=== PATIENT | male | born 1960 | race Caucasian/White ===

== ENCOUNTER 2016-11-15 06:29 | Day surgery (SDC) | payer BC ==
[2016-11-12 10:24] VITALS: BMI 32.3
[2016-11-15] MEDS ORDERED: MIDAZOLAM 2 MG/2 ML VIAL IV ONE (07:04)
[2016-11-15] MEDS ORDERED: MIDAZOLAM 2 MG/2 ML VIAL IVP ONE (07:20)
[2016-11-15] MEDS: SODIUM CHLORIDE 0.9% 1,000 ML IV SCH (07:27)
[2016-11-15 07:35] LABS: Prothrombin Time 19.2 sec (9.0-12.0)
[2016-11-15] MEDS ORDERED: FUROSEMIDE 10 MG/ML 2 ML VIAL ONE (07:54)
[2016-11-15] MEDS ORDERED: NEOSTIGMINE 1 MG/ML 10 ML VIAL ONE (07:54)
[2016-11-15] MEDS ORDERED: MIDAZOLAM 2 MG/2 ML VIAL ONE (07:54)
[2016-11-15] MEDS ORDERED: PROTAMINE SULFATE 10 MG/ML 5 ML VIAL IV ONE (07:54)
[2016-11-15] MEDS ORDERED: ceFAZolin 1,000 MG VIAL ONE (07:54)
[2016-11-15] MEDS ORDERED: LIDOCAINE 4% (PF) 5 ML AMP ONE (07:54)
[2016-11-15] MEDS ORDERED: fentaNYL (PF) 50 MCG/ML 2 ML AMP ONE (07:54)
[2016-11-15] MEDS ORDERED: VECURONIUM 10 MG VIAL IV ONE (07:54)
[2016-11-15] MEDS ORDERED: GLYCOPYRROLATE 0.2 MG/ML 2 ML VIAL ONE (07:54)
[2016-11-15] MEDS ORDERED: HEPARIN SODIUM 1,000 UNIT/ML VIAL ONE (07:54)
[2016-11-15] MEDS ORDERED: HEPARIN SODIUM,PORCINE 5,000 UNIT/ML 1 ML VIAL ONE (07:54)
[2016-11-15] MEDS ORDERED: PROPOFOL 10 MG/ML 20 ML VIAL IV ONE (07:54)
[2016-11-15] MEDS ORDERED: ceFAZolin 1,000 MG/50 ML BAG (PMX) IVPB ONE (08:38)
[2016-11-15] MEDS ORDERED: HEPARIN SODIUM,PORCINE/D5W PMX 25,000 UNIT in DEXTROSE/WATER 1 500ML.BAG IV ONE (09:23)
[2016-11-15] MEDS ORDERED: HEPARIN SODIUM 1,000 UNIT/ML VIAL IV ONE (09:46)
[2016-11-15] MEDS ORDERED: HEPARIN SODIUM (1,000 UNIT/ML) 1,000 UNIT in SODIUM CHLORIDE 0.9% 1,000 ML IRRIGATION ONE ×2 (09:50→12:35)
[2016-11-15] MEDS ORDERED: LACTATED RINGERS 1,000 ML IV ONE (13:40)
[2016-11-15] MEDS ORDERED: FUROSEMIDE 10 MG/ML 4 ML VIAL ONE (14:36)
[2016-11-15] MEDS ORDERED: HYDROcodone/APAP 5-325MG 1 EACH TAB PO PRN (15:31)
[2016-11-15] MEDS ORDERED: ACETAMINOPHEN TAB 325 MG TAB PO PRN (15:31)
[2016-11-15] MEDS ORDERED: ACETAMINOPHEN IV (For NPO) 1,000 MG in EMPTY BAG 1 BAG IVPB ONE (16:00)
--- NOTE | 2016-11-15 16:16 | CE ---
DATE OF SERVICE: History of sick sinus syndrome status post permanent pacemaker implantation, history of cardiomyopathy, history of persistent symptomatic atrial fibrillation and had atrial fibrillation, now drug refractory and he required electrical cardioversion on flecainide. He is brought in for an EP study and ablation for atrial fibrillation. Patient was brought to the EP lab in a fasting state. Written informed consent was obtained prior to the procedure. IV antibiotics were administered preoperatively. His dual-chamber pacemaker was interrogation and then reprogrammed to DDD mode at 40 beats a minute. At the end of the procedure the dual-chamber pacemaker was interrogated and then reprogrammed to DDR 60 to 140 bpm. The right and left groins were prepped and draped as per protocol and the following sheaths were placed. A 5 Scottish sheath was placed in the right femoral artery, two 8 Scottish sheaths in the right femoral vein and one 10-Scottish sheath in the left femoral vein. Later one of the 8 Scottish sheaths was exchanged for a long sheath for left atrial mapping. Intracardiac echo catheter was placed and coronary sinus catheter was placed. A diagnostic EP study was performed. Sinus cycle length was 679 ms, DC interval was 223 ms, QRS 404 ms, QT 384 ms. AH interval was normal limits. Intracardiac echocardiography did not reveal any intracardiac mass or thrombus. 3-D anatomic mapping was performed of the left atrium and the right atrial isthmus. Left and right transseptal catheterization was performed. RA pressure 33 x 26 x 28 mmHg and LA pressures 16 x 5 x 11 mmHg. Under intracardiac echo guidance transeptal access was obtained of the left atrium. A long sheath was placed here and a mapping ablation catheter was placed and 3-D mapping was performed of the pulmonary veins and the left atrium. Antral isolation of the right-sided veins was performed and at the end of the procedure complete isolation was noted. There was recovery of conduction at the end anteriorly along the lucinao and this was re-ablated and complete isolation was obtained at the end. The esophagus was left-sided and therefore had to be deflected away from the left side allowing for complete isolation of the pulmonary veins at an antral level. The left-sided veins appeared to be a common left-sided vein and complete antral isolation was performed and entrance block was proven. There was no recovery of conduction at the end of the procedure. During the procedure, during mapping the patient went into tachycardia and he remained in tachycardia all through. This tachycardia was consistent with atrial flutter. Once pulmonary vein isolation was completed, the sheath and the mapping ablation catheter were pulled back into the right atrium. Entrainment was performed from the right atrial isthmus. The postpacing interval was a complete match as well as the activation pattern was consistent with typical atrial flutter. 3-D mapping of the right atrial isthmus was performed and successful ablation for atrial flutter was performed with termination of atrial flutter. Thereafter, complete integrity of the line was complete. Anatomic integrity of the line was confirmed and pacing maneuvers with differential pacing proved bidirectional block. Heparin was maintained about 300 and this is reversed at the end of the procedure prior removing the sheath. At the end of the procedure, radiographic evaluation of the esophagus was performed. There was no evidence for any esophageal perforation, tear or esophageal ulceration. Patient tolerated the procedure well without any acute complications. There was no evidence of pericardial effusion by intracardiac echo at the end of the procedure.
[2016-11-15] MEDS: WARFARIN 5 MG TAB PO SCH (17:29)
[2016-11-15] MEDS: LOSARTAN 50 MG TAB PO SCH (20:41)
[2016-11-15] MEDS: FLECAINIDE 50 MG TAB PO SCH (20:41)
[2016-11-16] MEDS: SODIUM CHLORIDE 0.9% 1,000 ML IV SCH (06:39)
[2016-11-16] MEDS: CARVEDILOL 6.25 MG TAB PO SCH (07:12)
--- NOTE | 2016-11-16 08:14 | PN ---
Mr. Peralta underwent an ablation for atrial fibrillation yesterday as well as ablation for atrial flutter. He is doing well this morning. He is lying comfortably in bed. He did get up this morning. His groins have healed well. Bladder catheter is out. He looks comfortable. He has no respiratory distress. He has a mild sore throat and a vague discomfort in the chest only when he takes a deep breath, but he does not appear to be in any pain when he takes a deep breath. His lungs are clear. He denies any cough, phlegm, or any shortness of breath. He denied any dizziness when he got up in the morning. He has had no swallowing problems, other than in his throat. On examination, the blood pressure is 151/68 mmHg, pulse rate in the 50s. Temperature is 96.9 degrees Fahrenheit. Head and neck examination is normal. Heart sounds S1, S2 normal. No rub, no gallop. Breath sounds are normal. No rhonchi. No crackles. Abdomen was soft, nontender. Extremities are warm. No edema. IMPRESSION: 1. Sick sinus syndrome, status post pacemaker implantation. 2. Atrial fibrillation, status post atrial fibrillation. 3. Atrial flutter, status post atrial flutter ablation. 4. Hypertension. SUGGEST: Continue anticoagulation. Continue cardiac medications and watch blood pressure and if the blood pressure is elevated, we will increase his antihypertensive therapy. His pacemaker will be interrogated today. I spoke to the nurse. She contacted [employer] for interrogation. I spoke to Dr. Acuna. He will see the patient on my behalf tomorrow and will discharge him tomorrow. Patient will be monitored for the next 24 hours since he had a long procedure under general anesthesia. He has had no acute complications so far and seems to be doing well.
[2016-11-16 08:29] LABS: INR 2.3 (<1.1); Prothrombin Time 21.9 sec (9.0-12.0)
[2016-11-16 08:36] LABS: Anion Gap 9 mmol/L; Blood Urea Nitrogen 15 mg/dL (9-20); Calcium 8.5 mg/dL (8.4-10.2); Carbon Dioxide 25 mmol/L (22-30); Chloride 101 mmol/L (98-107); Glucose 129 mg/dL (74-99); Non-African American GFR(MDRD) >60 (>60 ml/min/1.73 sqM); Sodium 135 mmol/L (137-145)
[2016-11-16] MEDS: MAGNESIUM OXIDE 400 MG TAB PO SCH (08:52)
[2016-11-16] MEDS: FLECAINIDE 50 MG TAB PO SCH ×2 (08:52→20:00)
[2016-11-16] MEDS: PANTOPRAZOLE 40 MG TABLET PO SCH (08:52)
[2016-11-16] MEDS: SPIRONOLACTONE 25 MG TAB PO SCH (08:53)
[2016-11-16] MEDS ORDERED: WARFARIN 5 MG TAB PO ONE ×2 (09:00→18:00)
[2016-11-16] MEDS: WARFARIN 5 MG TAB PO SCH (17:09)
[2016-11-16] MEDS: LOSARTAN 50 MG TAB PO SCH (20:00)
[2016-11-17] MEDS: CARVEDILOL 6.25 MG TAB PO SCH (07:04)
[2016-11-17] MEDS: SODIUM CHLORIDE 0.9% 1,000 ML IV SCH (07:05)
[2016-11-17] MEDS: FLECAINIDE 50 MG TAB PO SCH (08:27)
[2016-11-17] MEDS: SPIRONOLACTONE 25 MG TAB PO SCH (08:28)
[2016-11-17] MEDS: MAGNESIUM OXIDE 400 MG TAB PO SCH (08:28)
[2016-11-17] MEDS: PANTOPRAZOLE 40 MG TABLET PO SCH (08:28)
[2016-11-17 08:35] VITALS: TEMP 97.1
--- NOTE | 2016-11-17 14:18 | P.DS ---
Providers Attending physician: Harvey Brown Primary care physician: Marshall Junior - Discharge Diagnosis(es) (1) Sick sinus syndrome Current Visit: Yes Status: Chronic (2) Atrial fibrillation and flutter Current Visit: Yes Status: Acute (3) Status post radiofrequency ablation for arrhythmia Current Visit: Yes Status: Acute (4) Pacemaker Current Visit: Yes Status: Acute (5) Hypertension Current Visit: Yes Status: Chronic Hospital Course: This is a pleasant 56-year-old gentleman who underwent ablation for atrial fibrillation and atrial flutter on November 15. He has done well and remains in sinus rhythm. His been up walking without difficulties. Denies complaints of shortness of breath, chest discomfort, palpitations, dizziness or lightheadedness. He denies further complaints of discomfort in the chest when taking a deep breath. Continues to complain of mild sore throat with no difficulty swallowing. He's had no cough or nausea and vomiting. Physical examination reveals clear lung sounds. Heart sounds are regular S1 and S2 are normal with no rub, gallop or murmurs. Abdomen soft and nontender. Peripheral pulses palpable. Bilateral groin puncture sites soft with ecchymosis, no hematoma. He will be discharged this afternoon and follow-up with Dr. Qiu in the office in one week. Plan - Discharge Summary Discharge Medication List Carvedilol [Coreg] 6.25 mg PO QAM 05/18/14 [History] Losartan [Cozaar] 50 mg PO HS 05/18/14 [History] Magnesium Chloride [Slow-Mag] 64 mg PO DAILY 05/18/14 [History] Omeprazole [PriLOSEC] 20 mg PO QAM 05/18/14 [History] Spironolactone 50 mg PO QAM 05/18/14 [History] Warfarin [Coumadin] 5 mg PO DAILY 05/18/14 [History] Ezetimibe/Simvastatin [Vytorin 10-20 mg Tablet] 0.5 tab PO HS 06/14/14 [History] Flecainide [Tambocor] 100 mg PO Q12HR 08/21/16 [History] Follow up Appointment(s)/Referral(s): Harvey Brown MD [STAFF PHYSICIAN] - 1 Week
[2016-11-17 14:22] VITALS: BP 125/72; PULSE 70; RESP 18
== END 2016-11-17 15:00 | disposition home or self-care (01) ==
LOC: CATHEP 06:29 → 6SEL 14:49 → CATHEP 11-17 15:00
PROVIDERS: ATTEND Internal Medicine Clinical Cardiac Electrophysiology
DX: I48.1 Persistent atrial fibrillation (principal); I48.92 Unspecified atrial flutter; I49.5 Sick sinus syndrome; I10 Essential (primary) hypertension; Z95.0 Presence of cardiac pacemaker; G47.33 Obstructive sleep apnea (adult) (pediatric); I42.9 Cardiomyopathy, unspecified; E78.5 Hyperlipidemia, unspecified; I73.9 Peripheral vascular disease, unspecified; K21.9 Gastro-esophageal reflux disease without esophagitis; Z79.01 Long term (current) use of anticoagulants; Z79.899 Other long term (current) drug therapy
CPT/HCPCS: 85347; 93662; 93613; 93656; 83880; 80048; 83735; 85610 ×2; C1769 ×3; C1894 ×3; C1730; C1893; C1759; C1732; J2001; J2250; J2720; J1644 ×3; J1940; J2710; J0690 ×2; J3010; J0131; J2704

== ENCOUNTER → 2017-01-15 | Outpatient (CLI) | payer BC ==
--- NOTE | 2017-01-16 09:10 | PN ---
A 50-year-old male patient coming in today for a followup regarding his obstructive sleep apnea. His last evaluation was in June 2013. Back then the patient was diagnosed having KENZIE with an AHI of 32.8 and he remains on a BiPAP at a pressure of 11/7 cm of water. He is doing well. He has no specific complaints. He has history of paroxysmal atrial fibrillation along with history of DVT and he has a pacemaker in place. Other comorbid conditions include hyperlipidemia and GERD. I checked his CPAP machine. The patient is using his CPAP every night without any interruption. His CPAP use for more than 4 hours is 26 out of 30 and his average CPAP use is 6 hours per night. His AHI is down to 0.3. No hypersomnia or sleepiness during the day. No recent weight gain or weight loss. He is still benefiting from CPAP therapy and he is waking up refreshed and alert during the day. No other complaints otherwise for now. BP is 123/86, pulse 64, respirations 16, temperature 98.0, saturation 99% on room air. Weight is 263. Height is 73 inches. BMI is 34.6. GENERAL APPEARANCE: Calm, comfortable. HEENT: Negative for JVD. There is no goiter or neck masses. LUNGS: Clear to auscultation. HEART: Sounds are regular rate and rhythm. Normal S1 and S2. No S3, no S4. No murmurs. ABDOMEN: Soft, nontender. No organomegaly. EXTREMITIES: No edema. No cyanosis or clubbing. IMPRESSION: 1. Severe obstructive sleep apnea with an apnea-hypopnea index of 32.8, currently on a BiPAP with a pressure of 11/7 cm of water. Treatment remains successful. The patient continues to see adequate benefit and he remains compliant based on the compliance data that was checked today from his BiPAP machine. 2. Chronic atrial fibrillation. 3. Hypertension. 4. Right ventricular enlargement based on previous echocardiograms. 5. History of deep venous thrombosis back in 2006. 6. History of pacemaker insertion. 7. Hyperlipidemia. 8. Acid reflux. 9. History of retinal detachment in 2002 and 2010. 10. Obesity. 11. Degenerative arthritis. PLAN: 1. Encourage using the BiPAP at the same level of pressure. 2. Renew his mask, tubing and supplies. 3. No need for any studies at this point as the patient's treatment is successful and the patient has been compliant. 4. Implement good sleep hygiene measures. 5. Weight loss. 6. Follow up with Dr. Brown. 7. See me back in followup in a year's time if needed.
== END | disposition home or self-care (01) ==
LOC: SLEEP 13:11
PROVIDERS: ATTEND Internal Medicine Critical Care Medicine
DX: G47.33 Obstructive sleep apnea (adult) (pediatric) (principal)

== ENCOUNTER → 2018-11-25 | Outpatient (CLI) | payer BC ==
--- NOTE | 2018-11-25 15:38 | PN ---
PROGRESS NOTE A 58-year-old male patient coming in for a followup regarding obstructive sleep apnea. The last evaluation was approximately 2 years ago. The patient has severe KENZIE with an AHI of 34 and currently is on a BiPAP pressure of 11/7 cm of water. He is using a [employer] BiPAP unit. Doing extremely well. Very compliant with his treatments. His weight is up by around 15 pounds over the past 2 years. He is averaging about 7 hours of BiPAP use per night. His AHI is down to 0.3. BiPAP use for more than 4 hours is 100%. No complaints, alert and awake during the day. No cardiac complications. He underwent a cardiac ablation for atrial fibrillation and he remains in normal sinus rhythm. The procedure itself was very successful. REVIEW OF SYSTEMS: A 12-point review of system was done and positive findings are mentioned above in history of present illness. PHYSICAL EXAMINATION: BP is 134/82, pulse 80, respirations 16, temperature 98.4, saturation 99% on room air. BMI 33.9, weight is 268. Height is 6,2. Encinal score is down to 0. GENERAL APPEARANCE: Calm, comfortable. Head is atraumatic, normocephalic. Neck is supple. Mallampati class IV, no goiter or neck mass. LUNGS: Clear to auscultation. HEART: Sounds regular rate and rhythm. Normal S1, S2. No murmurs. ABDOMEN: Soft, nontender. No organomegaly. EXTREMITIES: No edema. No cyanosis or clubbing. NEUROLOGIC: Alert and oriented x3. There is no focal neurological deficits. IMPRESSION: 1. Symptomatic obstructive sleep apnea, severe apnea-hypopnea index of 34, while treated with a BiPAP pressure of 11/7. 2. Hypersomnia, recovered. 3. Atrial fibrillation, post ablation, currently in normal sinus rhythm. PLAN: 1. Encourage losing weight. The patient is noted to have gained around 15 pounds and he was encouraged to maintain or lose weight over the next few years. 2. Continue BiPAP at the same level of pressure. 3. Offered an Air Fit N10 nose mask as an alternative mask. His current mask is a Mitchell FX debo. Refills on the mask was given. 4. He has an older generation BiPAP unit which is functional. Will continue using the same machine. He will contact me back if he should have any problems in the future. Otherwise, will see him back in few years' time. MMODL / IJN: [id number] /
== END ==
LOC: SLEEP 14:33
PROVIDERS: ATTEND Internal Medicine Critical Care Medicine
DX: G47.33 Obstructive sleep apnea (adult) (pediatric) (principal); I48.91 Unspecified atrial fibrillation; Z98.890 Other specified postprocedural states; Z99.89 Dependence on other enabling machines and devices

== ENCOUNTER 2021-12-11 05:59 | Day surgery (SDC) | payer BC ==
[2021-12-06 16:26] VITALS: BMI 32.5
[2021-12-11] MEDS ORDERED: SODIUM CHLORIDE 0.9% 1,000 ML IV SCH (06:00)
[2021-12-11 06:24] VITALS: RESP 16; TEMP 98.8
[2021-12-11 06:32] LABS: Basophils % (A) 0 %; Eosinophils # (A) 0.1 k/uL (0-0.7); Eosinophils % (A) 2 %; HCT 45.3 % (39.0-53.0); HGB 14.9 gm/dL (13.0-17.5); Lymphocytes # (A) 1.3 k/uL (1.0-4.8); Lymphocytes % (A) 22 %; MCH 32.3 pg (25.0-35.0); MCV 97.8 fL (80.0-100.0); Mean Platelet Volume 7.6; Monocytes # (A) 0.4 k/uL (0-1.0); Monocytes % (A) 8 %; Neutrophils # (A) 3.7 k/uL (1.3-7.7); Neutrophils % (A) 66 %; Platelet Count 143 k/uL (150-450); RBC 4.63 m/uL (4.30-5.90); RDW 12.2 % (11.5-15.5); WBC 5.6 k/uL (3.8-10.6)
[2021-12-11 06:52] LABS: African American GFR (CKD) >90 (>60 ml/min/1.73 sqM); Anion Gap 5 mmol/L; Blood Urea Nitrogen 17 mg/dL (9-20); Carbon Dioxide 26 mmol/L (22-30); Chloride 107 mmol/L (98-107); Glucose 99 mg/dL (74-99); Non-African American GFR(CKD) 80 (>60 ml/min/1.73 sqM); Sodium 138 mmol/L (137-145)
[2021-12-11 06:59] LABS: Potassium 4.1 mmol/L (3.5-5.1)
[2021-12-11] MEDS ORDERED: ceFAZolin 1 GM in SODIUM CHLORIDE 0.9% IRRIG BTL 250 ML IRRIGATION PRN (07:00)
[2021-12-11] MEDS ORDERED: diphenhydrAMINE 50 MG/ML 1 ML VIAL ONE (07:21)
[2021-12-11] MEDS ORDERED: MIDAZOLAM 2 MG/2 ML VIAL ONE (07:21)
[2021-12-11] MEDS ORDERED: fentaNYL (PF) 50 MCG/ML 2 ML AMP ONE (07:21)
[2021-12-11] MEDS ORDERED: ONDANSETRON 4 MG/2 ML VIAL ONE (07:21)
[2021-12-11] MEDS ORDERED: LIDOCAINE 1% INJ 10MG/ML (20 ML MDV) ONE (07:35)
[2021-12-11] MEDS ORDERED: LIDOCAINE 1% INJ 10MG/ML (20 ML MDV) SQ ONE ×3 (07:47→08:20)
[2021-12-11] MEDS ORDERED: ACETAMINOPHEN TAB 325 MG TAB PO PRN (08:30)
--- NOTE | 2021-12-11 08:35 | P.PN ---
Progress Note - Text Successful dual-chamber pacemaker implantation for sick sinus syndrome with approximately 30% atrial pacing Minimal RV pacing Preserved LV systolic function History of persistent atrial fibrillation Successful dual-chamber pacemaker generator change Both atrial and ventricular leads appear normal on fluoroscopy Both leads of functioning normally with stable impedances and excellent thresholds and sensing function Medtronic dual-chamber pacemaker implanted, AAIR-DDDR 50 to 140
[2021-12-11] MEDS ORDERED: NON FORMULARY DRUG (Spironolactone [Spironolactone] 50 MG Tablet) PO SCH (09:00)
[2021-12-11] MEDS ORDERED: FLECAINIDE 50 MG TAB PO SCH (09:00)
[2021-12-11] MEDS ORDERED: ACETAMINOPHEN IV (For NPO) 1,000 MG in EMPTY BAG 1 BAG IVPB ONE (09:30)
--- NOTE | 2021-12-11 14:28 | P.EPPROC ---
- EP Procedure Note Electrophysiology Procedure Note: Indication Dual-chamber pacemaker generator change for normal battery depletion Procedure Cinefluoroscopy of the leads was performed line atrial lead in the right atrial appendage and RV lead in the RV apex chronically placed No fractures or breaks noted Left pectoral area was prepped and draped as a protocol. IV antibiotic Cipro administered Incision was made over the keloid The keloid was excised The generator was explanted We have interrogated Partial capsulectomy performed New generator implanted Leads interrogated and functioning normally A Medtronic dual-chamber pacemaker implanted and programmed to AAI-DDDR 50-140 bpm Normally functioning RV and atrial leads Patient tolerated the procedure well without any acute complications
[2021-12-11] MEDS ORDERED: carvediloL 6.25 MG TAB PO SCH (17:30)
[2021-12-11 20:00] VITALS: BP 116/65; PULSE 58
[2021-12-11] MEDS ORDERED: LOSARTAN 50 MG TAB PO SCH (21:00)
[2021-12-11] MEDS ORDERED: NON FORMULARY DRUG (Simvastatin 10 MG Tab) PO SCH (21:00)
[2021-12-11] MEDS ORDERED: RIVAROXABAN 20 MG TAB PO SCH (21:00)
[2021-12-11] MEDS ORDERED: NON FORMULARY DRUG (Magnesium Chloride 64 MG Tablet.Er) PO SCH (21:00)
[2021-12-11] MEDS ORDERED: EZETIMIBE 10 MG TAB PO SCH (21:00)
[2021-12-12] MEDS ORDERED: PANTOPRAZOLE 40 MG TABLET PO SCH (07:30)
== END 2021-12-11 17:18 | disposition home or self-care (01) ==
LOC: CATHEP 05:59
PROVIDERS: ATTEND Internal Medicine Clinical Cardiac Electrophysiology
DX: I49.5 Sick sinus syndrome (principal); I48.19 Other persistent atrial fibrillation; Z20.822 Contact with and (suspected) exposure to COVID-19
CPT/HCPCS: 33228; 80048; 85025; 87635; C1785; J2250; J1200; J0690; J2405; J2001; J3010; J0131

== ENCOUNTER 2023-09-30 10:33 | Day surgery (SDC) | payer BC ==
[~2023-09-30 10:33] MED LIST: ALPRAZolam 0.25 MG TAB PO PRN; ALPRAZolam 0.5 MG TAB PO PRN; ASPIRIN 325 MG TAB PO STA; ATORVASTATIN 80 MG TAB PO STA; HEPARIN SODIUM,PORCINE (1 ML) 2,500 UNIT in SODIUM CHLORIDE 0.9% 250 ML IRRIGATION PRN; HEPARIN SODIUM,PORCINE 10,000 UNIT in SODIUM CHLORIDE 0.9% 1,000 ML IRRIGATION PRN; NITROGLYCERIN SL TABS 0.4 MG TAB SUBLINGUAL PRN; SODIUM CHLORIDE 0.9% 1,000 ML in EMPTY BAG 1 BAG IV SCH
[2023-09-30] MEDS ORDERED: SODIUM CHLORIDE 0.9% 1,000 ML IV ONE (10:37)
[2023-09-30 11:08] VITALS: RESP 16; TEMP 97.8
[2023-09-30 11:57] LABS: African American GFR (CKD) >90 (>60 ml/min/1.73 sqM); Anion Gap 12 mmol/L; Blood Urea Nitrogen 17 mg/dL (9-20); Calcium 9.4 mg/dL (8.4-10.2); Carbon Dioxide 25 mmol/L (22-30); Chloride 103 mmol/L (98-107); Glucose 103 mg/dL (74-99); Non-African American GFR(CKD) 83 (>60 ml/min/1.73 sqM); Potassium 4.5 mmol/L (3.5-5.1); Sodium 140 mmol/L (137-145)
[2023-09-30] MEDS ORDERED: LIDOCAINE 1% INJ 10MG/ML (30 ML VIAL-PF) SQ ONE (12:50)
[2023-09-30] MEDS ORDERED: MIDAZOLAM 2 MG/2 ML VIAL IVP ONE ×2 (12:50)
[2023-09-30] MEDS ORDERED: fentaNYL (PF) 50 MCG/1 ML VIAL IVP ONE ×2 (12:50)
[2023-09-30] MEDS ORDERED: HEPARIN SODIUM 1,000 UN/ML (10ML VL) IVP ONE (12:51)
[2023-09-30] MEDS ORDERED: VERAPAMIL SYRINGE (5 MG/10 ML) INTRAARTER ONE (12:51)
--- NOTE | 2023-09-30 12:58 | P.CARDCATH ---
Description of Procedure: PROCEDURES PERFORMED: Left heart catheterization, bilateral coronary angiography, ultrasound guided arterial access INDICATION: Abnormal stress test CONSENT:I have discussed the risks, benefits and alternative therapies for the above-mentioned procedure and for both sedation/analgesia as well as necessary blood product administration, if indicated, as they pertain to this patient. The patient has indicated understanding and acceptance of the risks and procedures discussed. PROCEDURE: After the risks, benefits and alternatives of the above mentioned procedure explained in detail with the patient, informed consent was obtained. Patient was taken to the catheterization lab and prepped and draped in usual fashion. Ultrasound guidance was used to assess for arterial access. 1% lidocaine was used to anesthetize the right radial artery. A 6-Moroccan sheath was placed in the right radial artery using modified Seldinger technique and ultrasound guidance. Left coronary angiography was performed with a 5-Moroccan JL 3.5 catheter and right coronary angiography was performed with a 5-Moroccan AR2 catheter in various views. A 5-Moroccan AR2 catheter was inserted into the left ventricle and pressure measurements were obtained. The right radial sheath was removed and a TR band was placed with hemostasis achieved. The patient to lerated the procedure well. Patient was transported back to the post catheterization holding area in stable condition. Conscious Sedation: Patient was monitored under the direct supervision of myself for conscious sedation using Versed and fentanyl for a total duration of 10 minutes HEMODYNAMICS: Aorta: 117/75 LV: 111/7, LVEDP 18 SELECTIVE CORONARY ARTERIOGRAPHY: LEFT MAIN: The left main is a large caliber vessel which bifurcates into the LAD and circumflex. There is no significant stenosis. LEFT ANTERIOR DESCENDING CORONARY ARTERY: LAD is a large caliber vessel which wraps around to the apex. There is no significant stenosis. There is mild bridging of the mid LAD LEFT CIRCUMFLEX CORONARY ARTERY: Left circumflex is a moderate caliber vessel without significant stenosis. RIGHT CORONARY ARTERY: The right coronary artery is a large caliber vessel which gives off a PDA and PLV branch and is the dominant vessel. There is no significant stenosis. FINAL IMPRESSION: 1. Normal coronary arteries as described above. 2. Mildly elevated left sided filling pressures PLAN: 1. Aggressive risk factor modification per most recent ACC/AHA guidelines. 2. Follow-up in the office in 1-2 weeks.
[2023-09-30] MEDS ORDERED: IOPAMIDOL-370 100ML BTL INJ ONE (13:10)
[2023-09-30 17:09] VITALS: BP 108/78; PULSE 62
== END 2023-09-30 16:10 | disposition home or self-care (01) ==
LOC: CATHCVL 10:33
PROVIDERS: ATTEND Internal Medicine
DX: I48.0 Paroxysmal atrial fibrillation (principal); I49.5 Sick sinus syndrome; I34.0 Nonrheumatic mitral (valve) insufficiency; Z79.01 Long term (current) use of anticoagulants; Z79.899 Other long term (current) drug therapy
CPT/HCPCS: 93458; 76937; 80048; C1769; C1894; J2250; J2001; J1644; Q9967; J3010